=== PATIENT | female | born 1945 | race Two or more races ===

== ENCOUNTER 2021-03-25 20:52 | Inpatient (IN) | payer OTHER ==
[~2021-03-25] VITALS: Ht 152.4 cm; Wt 65.0 kg
[2021-03-25 21:34] LABS: Basophils # (auto) 0.1 10 ^3/uL (0-0.2); Basophils % (auto) 1.4 % (0.0-2.0); Eosinophils # (auto) 0.3 10 ^3/uL (0-0.8); Eosinophils % (auto) 4.1 % (0.0-7.0); Hematocrit 45.6 % (36.0-46.0); Hemoglobin 15.3 g/dL (12.2-16.2); Lymphocytes # (auto) 1.1 10 ^3/uL (0.4-5.4); Lymphocytes % (auto) 14.4 % (10.0-50.0); Mean Corpuscular Hemoglobin 27.9 pg (28.0-32.0); Mean Corpuscular Hgb Conc. 33.5 g/dL (32.0-36.0); Mean Corpuscular Volume 83.2 fL (80.0-100.0); Monocytes # (auto) 0.7 10 ^3/uL (0-1.3); Monocytes % (auto) 9.3 % (0.0-12.0); Neutrophils # (auto) 5.5 10 ^3/uL (1.6-8.6); Neutrophils % (auto) 70.8 % (37.0-80.0); Red Blood Cells 5.48 10^6/uL (4.0-5.20); Red Cell Distribution Width 14.2 % (11.8-14.3); White Blood Cell 7.8 10^3/uL (4.4-10.8)
[2021-03-25 21:43] LABS: BUN/Creatinine Ratio 20.7; Calcium 9.1 mg/dL (8.5-10.1)
[2021-03-25 21:49] LABS: Bilirubin, Total 0.4 mg/dL (0.2-1.0); Total Protein 7.7 g/dL (6.4-8.2)
[2021-03-25] MEDS ORDERED: hydrALAZINE HCL 20 MG/ML VL IV ONE (22:00)
[2021-03-25] MEDS ORDERED: ASPirin 325 MG TAB PO ONE (23:45)
[2021-03-25] MEDS ORDERED: POTASSIUM EFFERVESENT TAB 25 MEQ PO ONE (23:45)
[2021-03-26] MEDS ORDERED: POTASSIUM CHL 20 Meq TABLET PO ONE (01:30)
[2021-03-26] MEDS ORDERED: FUROSEMIDE 20 MG/2 ML VIAL IV ONE (01:30)
[2021-03-26] MEDS ORDERED: ONDANSETRON HCL 4 MG/2 ML VIAL IV PRN (02:15)
[2021-03-26] MEDS ORDERED: NITROGLYCERIN 0.4 MG SL TAB SL PRN (02:15)
[2021-03-26] MEDS ORDERED: MORPHINE SULFATE INJECTION 2 MG/ML SYRG IV PRN ×2 (02:15)
[2021-03-26 04:53] LABS: INR 1.03 (0.9-1.15)
[2021-03-26 06:00] VITALS: BP 153/89
[2021-03-26 06:16] VITALS: BP 153/89
[2021-03-26] MEDS ORDERED: [UNRECOGNIZED DRUG - CODE] TOP (06:58)
[2021-03-26] MEDS ORDERED: VERA1TAB24 PO (06:58)
[2021-03-26] MEDS ORDERED: OMEP-260 PO (06:59)
[2021-03-26] MEDS: FUROSEMIDE 40 MG/4 ML VIAL IV SCH ×3 (07:15→21:14)
[2021-03-26 09:00] VITALS: BP 140/68
[2021-03-26 09:06] LABS: Basophils # (auto) 0.1 10 ^3/uL (0-0.2); Basophils % (auto) 0.9 % (0.0-2.0); Eosinophils # (auto) 0.1 10 ^3/uL (0-0.8); Eosinophils % (auto) 0.7 % (0.0-7.0); Hematocrit 43.9 % (36.0-46.0); Hemoglobin 14.9 g/dL (12.2-16.2); Lymphocytes # (auto) 0.8 10 ^3/uL (0.4-5.4); Lymphocytes % (auto) 9.9 % (10.0-50.0); Mean Corpuscular Hemoglobin 28.1 pg (28.0-32.0); Mean Corpuscular Hgb Conc. 33.9 g/dL (32.0-36.0); Monocytes # (auto) 0.7 10 ^3/uL (0-1.3); Monocytes % (auto) 7.8 % (0.0-12.0); Neutrophils # (auto) 6.7 10 ^3/uL (1.6-8.6); Neutrophils % (auto) 80.7 % (37.0-80.0); Red Blood Cells 5.29 10^6/uL (4.0-5.20); Red Cell Distribution Width 14.2 % (11.8-14.3); White Blood Cell 8.3 10^3/uL (4.4-10.8)
[2021-03-26 09:26] LABS: Albumin 4.1 g/dL (3.4-5.0); Calcium 8.8 mg/dL (8.5-10.1); Potassium 4.2 mmol/L (3.5-5.1)
[2021-03-26 09:29] LABS: BUN/Creatinine Ratio 16.3; Bilirubin, Total 0.8 mg/dL (0.2-1.0); Total Protein 7.9 g/dL (6.4-8.2)
[2021-03-26] MEDS: ENOXAPARIN SOD 40 MG/0.4 ML SYRINGE SC SCH (09:50)
[2021-03-26] MEDS: ASPirin-EC 325mg tab PO SCH (09:50)
[2021-03-26] MEDS: METOPROLOL SUCCINATE XL 50 MG TAB PO SCH ×2 (09:50→21:14)
[2021-03-26 12:30] VITALS: BP 112/62
[2021-03-26] MEDS ORDERED: LORazepam 0.5 MG TAB PO ONE (12:45)
[2021-03-26 17:00] VITALS: BP 105/55
[2021-03-26] MEDS: ATORVASTATIN 20 MG TAB PO SCH (20:56)
[2021-03-26 22:00] VITALS: BP 128/68
[2021-03-26 23:53] LABS: Urine Bacteria FEW /hpf (None Seen); Urine Blood Negative /uL (Negative); Urine Specific Gravity 1.006 (1.001-1.035); Urine WBC <1 /hpf (0 - 5)
[2021-03-27] VITALS (10 sets, daily range): BP systolic 117–154; BP diastolic 52–69
[2021-03-27] MEDS: FUROSEMIDE 40 MG/4 ML VIAL IV SCH (06:11)
[2021-03-27 06:50] LABS: Basophils # (auto) 0.1 10 ^3/uL (0-0.2); Eosinophils # (auto) 0.3 10 ^3/uL (0-0.8); Eosinophils % (auto) 5.3 % (0.0-7.0); Hematocrit 41.2 % (36.0-46.0); Hemoglobin 13.9 g/dL (12.2-16.2); Lymphocytes # (auto) 1.1 10 ^3/uL (0.4-5.4); Lymphocytes % (auto) 18.6 % (10.0-50.0); Mean Corpuscular Hemoglobin 28.2 pg (28.0-32.0); Mean Corpuscular Hgb Conc. 33.7 g/dL (32.0-36.0); Mean Corpuscular Volume 83.7 fL (80.0-100.0); Monocytes # (auto) 0.6 10 ^3/uL (0-1.3); Monocytes % (auto) 10.3 % (0.0-12.0); Neutrophils # (auto) 3.9 10 ^3/uL (1.6-8.6); Neutrophils % (auto) 64.8 % (37.0-80.0); Nucleated Red Blood Cells % 0.1 %; Red Blood Cells 4.92 10^6/uL (4.0-5.20); Red Cell Distribution Width 14.3 % (11.8-14.3); White Blood Cell 6.1 10^3/uL (4.4-10.8)
[2021-03-27 07:07] LABS: Albumin 3.5 g/dL (3.4-5.0); BUN/Creatinine Ratio 28.6; Calcium 8.9 mg/dL (8.5-10.1); Potassium 3.8 mmol/L (3.5-5.1)
[2021-03-27 07:10] LABS: Bilirubin, Total 0.5 mg/dL (0.2-1.0); Total Protein 6.4 g/dL (6.4-8.2)
[2021-03-27] MEDS ORDERED: SODIUM CHL 0.9% 50 ML ONE (08:47)
[2021-03-27] MEDS ORDERED: fentaNYL CITRATE 100 MCG/2 ML VL ONE (08:47)
[2021-03-27] MEDS ORDERED: ANGIOMAX 250 MG VIAL IV ONE (08:47)
[2021-03-27] MEDS ORDERED: IODIXANOL 320MG/ML 100ML BTL IV ONE ×3 (08:47→10:02)
[2021-03-27] MEDS ORDERED: MIDAZOLAM HCL 2MG/2ML 2ml VIAL (1mg/ml) ONE (08:47)
[2021-03-27] MEDS ORDERED: LIDOCAINE 2%HCL (LOCAL ANESTH.) INJ 20ML MDV ONE (08:48)
[2021-03-27] MEDS ORDERED: diphenhdrAMINE HCL 50 MG/1 ML VL ONE (09:00)
[2021-03-27] MEDS ORDERED: methylPREDNISolone SOD SUCC 125 MG/2 ML VL ONE (09:00)
[2021-03-27] MEDS ORDERED: FAMOTIDINE (10MG/ML) 2ML VL IV ONE (09:00)
[2021-03-27] MEDS ORDERED: VERAPAMIL 2.5MG/ML INJ 2ML VIAL IV ONE (09:27)
[2021-03-27] MEDS ORDERED: HEPARIN SODIUM (PORCINE) 5000 UNITS/ML 1ML VIAL ONE (09:27)
[2021-03-27] MEDS ORDERED: METOPROLOL TARTRATE 1MG/1ML-5ML VIAL IV ONE (09:30)
[2021-03-27] MEDS ORDERED: hydrALAZINE HCL 20 MG/ML VL ONE (09:44)
[2021-03-27] MEDS ORDERED: TICAGRELOR 90 MG TAB ONE (09:56)
[2021-03-27] MEDS: ENOXAPARIN SOD 40 MG/0.4 ML SYRINGE SC SCH (10:00)
[2021-03-27] MEDS: ASPirin-EC 325mg tab PO SCH (10:42)
[2021-03-27] MEDS ORDERED: ACETAMINOPHEN 500 MG TAB PO PRN (11:30)
[2021-03-27] MEDS ORDERED: TICA90TA PO (12:47)
[2021-03-27] MEDS ORDERED: ASPI81CH59 PO (12:47)
[2021-03-27] MEDS ORDERED: METO-6 PO (12:47)
[2021-03-27] MEDS ORDERED: ATOR20TA50 PO (12:47)
[2021-03-27] MEDS ORDERED: NITR0.4S29 SL (12:47)
[2021-03-27] MEDS: METOPROLOL SUCCINATE XL 50 MG TAB PO SCH ×2 (13:27→21:50)
[2021-03-27] MEDS: FUROSEMIDE 20 MG/2 ML VIAL IV SCH ×2 (13:33→21:50)
[2021-03-27] MEDS: ATORVASTATIN 20 MG TAB PO SCH (21:51)
[2021-03-27] MEDS: TICAGRELOR 90 MG TAB PO SCH (21:58)
[2021-03-28 05:00] VITALS: BP 133/54
[2021-03-28] MEDS: FUROSEMIDE 20 MG/2 ML VIAL IV SCH (05:22)
[2021-03-28 06:43] LABS: Potassium 3.4 mmol/L (3.5-5.1)
[2021-03-28 06:52] LABS: BUN/Creatinine Ratio 34.5; Calcium 9.1 mg/dL (8.5-10.1)
[2021-03-28 09:10] VITALS: BP 150/108
[2021-03-28] MEDS ORDERED: LISI-275 PO (09:25)
[2021-03-28] MEDS ORDERED: POTASSIUM CHL 20 Meq TABLET PO ONE (09:30)
[2021-03-28] MEDS ORDERED: LISINOPRIL 5 MG TAB PO ONE (09:30)
[2021-03-28] MEDS: METOPROLOL SUCCINATE XL 50 MG TAB PO SCH (09:37)
[2021-03-28] MEDS: TICAGRELOR 90 MG TAB PO SCH (09:37)
[2021-03-28] MEDS: ASPirin-EC 325mg tab PO SCH (09:37)
[2021-03-28] MEDS: ENOXAPARIN SOD 40 MG/0.4 ML SYRINGE SC SCH (09:38)
[2021-03-28 11:11] VITALS: BP 148/83
[2021-03-28 13:15] VITALS: BP 136/58
== END 2021-03-28 14:10 | disposition home or self-care (01) | DRG 246 ==
LOC: ER 20:52 → TELE 03-26 02:15 → INTOOBSV 03-26 02:15 → TELE-WESTW 03-26 06:00 → OBSVTOIN 03-27 23:11
PROVIDERS: ADMIT Internal Medicine; ATTEND Internal Medicine
PROC: 027236Z Dilation of Coronary Artery, Three Arteries with Three Drug-eluting Intraluminal Devices, Percutaneous Approach (ICD-10-PCS; principal; 2021-03-27)
PROC: 4A023N7 Measurement of Cardiac Sampling and Pressure, Left Heart, Percutaneous Approach (ICD-10-PCS; 2021-03-27)
PROC: B211YZZ Fluoroscopy of Multiple Coronary Arteries using Other Contrast (ICD-10-PCS; 2021-03-27)
PROC: B215YZZ Fluoroscopy of Left Heart using Other Contrast (ICD-10-PCS; 2021-03-27)
DX: I21.4 Non-ST elevation (NSTEMI) myocardial infarction (principal); I50.43 Acute on chronic combined systolic (congestive) and diastolic (congestive) heart failure; I44.7 Left bundle-branch block, unspecified; I16.0 Hypertensive urgency; I11.0 Hypertensive heart disease with heart failure; I25.10 Atherosclerotic heart disease of native coronary artery without angina pectoris; F41.9 Anxiety disorder, unspecified; Z20.822 Contact with and (suspected) exposure to COVID-19; Z82.49 Family history of ischemic heart disease and other diseases of the circulatory system
CPT/HCPCS: 36415; 71045; 80048; 80053; 81001; 83735; 83880; 84484; 85025; 85610; 87426; 92928; 92929; 93005; 93458; 96374; 96375; 99152; 99153; C1874; C1887; G0378; J2250; J3490; Q9967